=== PATIENT | male | born 1950 | race Caucasian/White ===

== ENCOUNTER 2020-07-19 14:58 | Inpatient (IN) | payer SELFPAY ==
[~2020-07-19] VITALS: Ht 165.1 cm; Wt 74.8 kg
[2020-07-19 15:25] VITALS: BP 113/67
[2020-07-19 17:35] LABS: HEMATOCRIT 35.3 % (42.0-52.0); MEAN CELL VOLUME 109.6 fl (80.0-94.0); MEAN CORPUSCULAR HGB 33.9 pg (27.0-31.0); MEAN CORPUSCULAR HGB CONC 30.9 g/dl (33.0-37.0); MEAN PLATELET VOLUME 10.2 fl (9.6-12.3); PLATELET COUNT AUTOMATED 189 10*3/uL (130-400); RED BLOOD COUNT 3.22 10*6/uL (4.50-5.90); RED CELL DISTRI WIDTH 15.9 % (0-14.5); WHITE BLOOD COUNT 11.8 10*3/uL (4.8-10.8)
[2020-07-19 17:52] LABS: ALBUMIN 2.2 gm/dl (3.1-4.5); CREATININE 2.24 mg/dL (0.70-1.30); POTASSIUM 5.5 mmol/L (3.5-5.1); TOTAL PROTEIN 6.4 gm/dL (6.4-8.2)
[2020-07-19 17:54] LABS: INTERNATIONAL NORM RATIO 1.3 (2.0-3.5)
[2020-07-19 18:01] LABS: TOTAL CELLS COUNTED 100 #CELLS
[2020-07-19 18:02] LABS: PLATELET SUFFICIENCY NORMAL (NORMAL)
[2020-07-19 18:08] LABS: TROPONIN I 0.052 ng/ml (<0.045)
--- NOTE | 2020-07-19 18:48 | NUR ---
PATIENT RESTING IN BED AT THIS TIME. CALL LIGHT IN REACH. WILL CONTINUE TO MONITOR PT.
--- NOTE | 2020-07-19 22:06 | NUR ---
PATIENT RESTING AT THIS TIME. NO COMPLAINTS AT THIS TIME.
--- NOTE | 2020-07-19 23:49 | NUR ---
PATIENT RESTING AT THIS TIME. NO COMPLAINTS. CALL LIGHT IN REACH. LIGHTS DIMMED.
[2020-07-20] VITALS (12 sets, daily range): BP systolic 26–141; BP diastolic 00–105
--- NOTE | 2020-07-20 06:00 | NUR ---
PT VOMITING IN BEDSIDE COMMODE AT THIS TIME. EMISIS DARK BROWN IN COLOR AND LIQUID CONSISTENCY. PT STATES THAT HE HAS ONLY DRANK WATER AND ORANGE JUICE FOR DAYS. PT GIVEN AN EMISIS BAG AND CLEANED UP. PT ALSO REQUESTED BEDSIDE COMMODE. SAFETY PRECAUTIONS INTACT. CALL LIGHT AT BEDSIDE. WILL CONTINUE TO MONITOR.
--- NOTE | 2020-07-20 07:10 | NUR ---
REPORT FROM DARRELL PAYNE AT THIS TIME. STATES PATIENT HAS BEEN SLEEPING.
--- NOTE | 2020-07-20 08:00 | NUR ---
PATIENT CO LOW BACK PAIN AT THIS TIME. PATIENT LAYING IN BED A&OX4.
[2020-07-20 08:29] LABS: IRON 38 ug/dL (65-175); TOTAL IRON BINDING CAPACITY 233 ug/dl (250-450)
[2020-07-20 08:41] LABS: THYROID STIM HORMONE (HS) 2.63 uIU/ml (0.358-4.75)
--- NOTE | 2020-07-20 09:00 | NUR ---
ATTEMPTED TO GET ANOTHER AUTOMATIC BLOOD PRESSURE ON PATIENT. UNABLE TO GET AT THIS TIME. ATTEMPTED A MANUAL BP AND UNABLE TO GET WELL. DOPPLER TO BE TRIED.
--- NOTE | 2020-07-20 09:10 | NUR ---
DOPPLER ATTEMPTED ON PATIENT TO GET BLOOD PRESSURE. UNABLE TO OBTAIN. SECOND IV ACCESS PLACED AND IV FLUIDS SWITCHED TO NEW IV ACCESS AND PLACED ONTO PRESSURE BAG AT THIS TIME.
--- NOTE | 2020-07-20 09:20 | NUR ---
NEW IV FLUIDS HUNG ON PATIENT TO BE PRESSURE BAGGED PER LOW BP.
[2020-07-20 10:09] LABS: ABG BASE EXCESS -27.9 mmol/L (-2.0-2.0)
[2020-07-20 10:10] LABS: ARTERIAL BLOOD GAS PH 6.93 (7.35-7.45)
[2020-07-20 10:27] LABS: MEAN CORPUSCULAR HGB CONC 27.2 g/dl (33.0-37.0); MEAN PLATELET VOLUME 10.7 fl (9.6-12.3); NUCLEATED RED BLOOD CELL 0.4 % (0.0-0.0); RED BLOOD COUNT 1.43 10*6/uL (4.50-5.90); RED CELL DISTRI WIDTH 15.9 % (0-14.5); WHITE BLOOD COUNT 8.1 10*3/uL (4.8-10.8)
[2020-07-20 10:30] LABS: CREATININE 2.21 mg/dL (0.70-1.30); POTASSIUM 5.5 mmol/L (3.5-5.1)
[2020-07-20 10:40] LABS: MEAN CELL VOLUME 128.7 fl (80.0-94.0); PLATELET COUNT AUTOMATED 99 10*3/uL (130-400)
[2020-07-20 10:41] LABS: HEMATOCRIT 18.4 % (42.0-52.0)
--- NOTE | 2020-07-20 10:43 | NUR ---
DR. ARTHUR NOTIFIED OF CONSULT.
[2020-07-20 10:48] LABS: TROPONIN I 0.061 ng/ml (<0.045)
[2020-07-20 10:50] LABS: BASOPHILS 1 % (0-1); BURR CELLS MODERATE; PLATELET SUFFICIENCY LOW (NORMAL); TOTAL CELLS COUNTED 100 #CELLS
--- NOTE | 2020-07-20 10:50 | NUR ---
DR. XAVIER NOTIFIED OF CONSULT.
[2020-07-20 10:51] LABS: TOXIC GRANULATION SLIGHT; VACUOLATION OF NEUTROPHILS SLIGHT
--- NOTE | 2020-07-20 11:00 | NUR ---
THIS NURSE ACCOMPANYING PATIENT TO CT SCAN AT THIS TIME WITH AIRLINE TICKET AGENT.
--- NOTE | 2020-07-20 11:10 | NUR ---
EMERGENCY BLOOD STARTED ON PATIENT AT THIS TIME FIRST UNIT PRESSURE BAGGED INTO PATIENT PER VERBAL ORDER OF DR BEE. ALSO SECOND BAG OF BLOOD TO BE PRESSURE BAGGED INTO PATIENT PER VERBAL ORDER OF DR BEE WELL.
--- NOTE | 2020-07-20 11:25 | NUR ---
PATIENT RETURNS FROM CT AT THIS TIME WITH THIS NURSE.
--- NOTE | 2020-07-20 11:30 | NUR ---
PATIENT TITRATED TO 20MCG/MIN AT THIS TIME PER LOW BP.
--- NOTE | 2020-07-20 11:40 | NUR ---
PROTONIX ORDERED. PATIENT HAS [address] BEE TO DO CENTRAL LINE ON PATIENT. PATIENT CURRENTLY BEING SET UP FOR CENTRAL LINE.
--- NOTE | 2020-07-20 11:45 | NUR ---
PATIENT SECOND UNIT OF BLOOD DONE INFUSING AT THIS TIME.
--- NOTE | 2020-07-20 12:15 | NUR ---
PATIENT TAKEN TO THE ICCU AT THIS TIME. MAP WITHIN RANGE FOR DR BEE STATES TO KEEP MAP AROUND 65. PATIENT MAP WAS BETWEEN 63-68 JUST PRIOR TO TRANSPORT. BEDSIDE REPORT GIVEN TO ALY PAYNE. ANESTHESIA ON WAY TO INTUBATE PATIENT. DR BEE STATED WAS OK TO TAKE PATIENT UP TO ICCU AND ACCOMPANIED THIS NURSE ALSO TO THE ICCU.
--- NOTE | 2020-07-20 12:20 | NUR ---
RECIEVED FROM ER, PT LIMP, NO MUSCLE TONE, LETHARGIC, UNABLE TO ANSWER QUESTIONS, LEVAPHED AT 4, PROTONIX DRIP INFUSING ANES CALLED FOR EMERGENT INTUBATION/ART AND CENTRAL LINE PLACEMENT
--- NOTE | 2020-07-20 12:20 | NUR ---
A 69, admitted to ICCU, under the services of NILESH Butts MD with a diagnosis of . Chief complaint is DELFINO. Patient arrived via stretcher from ER. Monitor applied. Initial assessment completed. Vital signs taken and recorded. NILESH BUTTS MD notified of admission to the unit. Orders received. See assessment for past medical history, medications and allergies. Patient and/or family oriented to unit. [facility] ICCU visitation policy reviewed. Clothing/patient valuable form completed. ALY PERALTA
--- NOTE | 2020-07-20 13:00 | NUR ---
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
--- NOTE | 2020-07-20 13:11 | NUR ---
PATIENT DAUGHTER HAS PATIENTS BELONGINGS INCLUDING A PHONE, SHOES, AND CLOTHES.
[2020-07-20 14:02] LABS: ABG BASE EXCESS -27.3 mmol/L (-2.0-2.0); ARTERIAL BLOOD GAS PH 6.849 (7.35-7.45)
--- NOTE | 2020-07-20 16:48 | NUR ---
FAMILF DOES NOT WANT PT TRANSFERRED, AND SPOKE WITH DR LUIS CHANGED TO COMFORT CARE, NO FURTHER PRESSURES TO BE STARTED SEE PRINTED FORMS FOR VITAL SIGNS NO FURTHER LABS PER FAMILY PT WITH SBP 60-70 FAMILY AT BEDSIDE
--- NOTE | 2020-07-20 17:00 | NUR ---
PT NOW COMFORT CARE NO FURTHER LABS OR SPECIMENS
--- NOTE | 2020-07-20 20:02 | NUR ---
Patients family remains at the bedside, patients heart rate 40's. Bp reading 26/15. Patient unarousable, remains sedated on diprivan. Patient shows no signs of distress. Monitoring.
--- NOTE | 2020-07-20 20:20 | NUR ---
Patients went asystole on instructional design manager, artline reads no blood pressure. Family at bedside. Verified heart sounds/breath sounds. Vent shut off, iv pumps stopped.
--- NOTE | 2020-07-20 20:30 | NUR ---
[facility] be [facility].
--- NOTE | 2020-07-20 21:18 | NUR ---
RELEASED BY WORKERS COMPENSATION CLAIMS SUPERVISOR.
--- NOTE | 2020-07-20 21:57 | NUR ---
Andre rodriguez here to pick body up for transport to home.
[2020-07-21 07:06] LABS: HEP B CORE AB, IGM Negative (Negative); HEPATITIS B SURFACE AG Negative (Negative); HEPATITIS C VIRUS ANTIBODY <0.1 s/co (0.0-0.9)
== END 2020-07-20 21:57 | disposition expired | DRG 374 ==
LOC: ED 14:58 → ICCU 18:15 → ED 18:16 → EDHOLD 18:16 → ICCU 07-20 10:30 → ED 07-20 12:28 → ICCU 07-20 12:28
PROVIDERS: Emergency Medicine; Internal Medicine Critical Care Medicine; Physician Assistant; ADMIT Internal Medicine; ATTEND Internal Medicine
PROC: 0BH18EZ Insertion of Endotracheal Airway into Trachea, Via Natural or Artificial Opening Endoscopic (ICD-10-PCS; principal; 2020-07-20)
PROC: 5A1935Z Respiratory Ventilation, Less than 24 Consecutive Hours (ICD-10-PCS; 2020-07-20)
PROC: 04HY32Z Insertion of Monitoring Device into Lower Artery, Percutaneous Approach (ICD-10-PCS; 2020-07-20)
PROC: 4A133B1 Monitoring of Arterial Pressure, Peripheral, Percutaneous Approach (ICD-10-PCS; 2020-07-20)
PROC: 4A133J1 Monitoring of Arterial Pulse, Peripheral, Percutaneous Approach (ICD-10-PCS; 2020-07-20)
PROC: 02HV33Z Insertion of Infusion Device into Superior Vena Cava, Percutaneous Approach (ICD-10-PCS; 2020-07-20)
PROC: B548ZZA Ultrasonography of Superior Vena Cava, Guidance (ICD-10-PCS; 2020-07-20)
PROC: 3E0G8GC Introduction of Other Therapeutic Substance into Upper GI, Via Natural or Artificial Opening Endoscopic (ICD-10-PCS; 2020-07-20)
PROC: 30233K1 Transfusion of Nonautologous Frozen Plasma into Peripheral Vein, Percutaneous Approach (ICD-10-PCS; 2020-07-20)
PROC: 30233N1 Transfusion of Nonautologous Red Blood Cells into Peripheral Vein, Percutaneous Approach (ICD-10-PCS; 2020-07-20)
PROC: 30233R1 Transfusion of Nonautologous Platelets into Peripheral Vein, Percutaneous Approach (ICD-10-PCS; 2020-07-20)
DX: D49.0 Neoplasm of unspecified behavior of digestive system (principal); J96.00 Acute respiratory failure, unspecified whether with hypoxia or hypercapnia; N17.0 Acute kidney failure with tubular necrosis; K92.1 Melena; K92.0 Hematemesis; D62 Acute posthemorrhagic anemia; E87.2 Acidosis; E87.3 Alkalosis; E87.1 Hypo-osmolality and hyponatremia; R18.8 Other ascites; R57.8 Other shock; R74.01 Elevation of levels of liver transaminase levels; E86.1 Hypovolemia; E80.6 Other disorders of bilirubin metabolism; E83.41 Hypermagnesemia; E83.52 Hypercalcemia; R77.8 Other specified abnormalities of plasma proteins; R63.4 Abnormal weight loss; E78.1 Pure hyperglyceridemia; E87.5 Hyperkalemia; D69.6 Thrombocytopenia, unspecified; E78.6 Lipoprotein deficiency; K44.9 Diaphragmatic hernia without obstruction or gangrene; K31.89 Other diseases of stomach and duodenum; K76.0 Fatty (change of) liver, not elsewhere classified; K57.90 Diverticulosis of intestine, part unspecified, without perforation or abscess without bleeding; M51.36 Other intervertebral disc degeneration, lumbar region; I48.91 Unspecified atrial fibrillation; Z80.9 Family history of malignant neoplasm, unspecified; Z68.27 Body mass index [BMI] 27.0-27.9, adult